=== PATIENT | male | born 1955 | race Caucasian/White ===

== ENCOUNTER 2018-07-22 12:03 | Day surgery (SDC) | payer OTHER ==
[~2018-07-22 12:03] MED LIST: DEXAMETHASONE 4 MG/ML 5 ML INJ; ONDANSETRON 4 MG INJ
[2018-07-22] MEDS ORDERED: FENTAnyl 50 MCG/ML VIAL (13:16)
[2018-07-22] MEDS ORDERED: MIDAZOLAM 1 MG/ML 2 ML INJ (13:19)
[2018-07-22] MEDS ORDERED: LIDOCAINE 2% (SDV) 5 ML INJ (13:32)
[2018-07-22] MEDS ORDERED: PROPOFOL 20 ML (13:32)
[2018-07-22] MEDS ORDERED: SUCCINYLCHOLINE CHLORIDE 100 MG/5 ML SYG IV (13:33)
[2018-07-22] MEDS ORDERED: METOCLOPRAMIDE 10 MG INJ (13:33)
[2018-07-22] MEDS ORDERED: ROCURONIUM 50 MG INJ (13:33)
[2018-07-22] MEDS ORDERED: IPRATROPIUM (NEB) 0.5 MG/2.5 ML AMP HHN (14:30)
[2018-07-22] MEDS ORDERED: FENTAnyl 50 MCG/ML VIAL IV (14:30)
[2018-07-22] MEDS ORDERED: HYDROmorphONE 1 MG/5 ML IV SYRINGE IV (14:30)
[2018-07-22] MEDS ORDERED: DIPHENHYDRAMINE 50 MG INJ IV (14:30)
[2018-07-22] MEDS ORDERED: MEPERIDINE 25 MG INJ IV (14:30)
[2018-07-22] MEDS ORDERED: hydrALAzine 20 MG INJ IV (14:30)
[2018-07-22] MEDS ORDERED: LEVALBUTEROL (NEB) 1.25 MG/0.5 ML AMP HHN (14:30)
[2018-07-22] MEDS ORDERED: ONDANSETRON 4 MG INJ IV (14:30)
[2018-07-22] MEDS: OXYMETAZOLINE 0.05% 15 ML NAS SPRAY NASAL (14:57)
[2018-07-22] MEDS: LIDOCAINE 1%/EPI (1:100,000) (MDV) 20 ML (14:57)
[2018-07-22] MEDS ORDERED: METOPROLOL 5 MG INJ (15:16)
[2018-07-22] MEDS: LABETALOL HCL 20MG INJ IV (16:17)
[2018-07-22] MEDS: HYDROmorphONE 1 MG/5 ML IV SYRINGE IV (16:28)
[2018-07-22] MEDS: FENTAnyl 50 MCG/ML VIAL IV (16:28)
== END 2018-07-22 17:39 | disposition home or self-care (01) ==
LOC: SDS 12:03
DX: J34.2 Deviated nasal septum (principal); J34.3 Hypertrophy of nasal turbinates; I10 Essential (primary) hypertension; E11.9 Type 2 diabetes mellitus without complications; E78.5 Hyperlipidemia, unspecified; J44.9 Chronic obstructive pulmonary disease, unspecified; E66.9 Obesity, unspecified; Z68.31 Body mass index [BMI] 31.0-31.9, adult
CPT/HCPCS: 30140; 82962; 88300